=== PATIENT | male | born 1985 | race Caucasian/White ===

== ENCOUNTER → 2017-02-08 | Outpatient (CLI) | payer BC, OTHER ==
--- NOTE | 2017-02-09 14:06 | US ---
EXAM DATE: 02/08/17 PATIENT'S AGE: 31 Patient: SESAR JACKSON Facility: [place], [place] Site Site : 1985 Study: US Abdomen Renal-02/08/2017 8:49:52 PM Ordering Physician: Sarai Frye Final Report: INDICATION: Left lower quadrant pain TECHNIQUE: Ultrasound renal bilateral. Em-scale and color Doppler sonographic images were acquired of the kidneys and urinary bladder. COMPARISON: None FINDINGS: Right kidney: 10.2 x 4.6 x 5.2 cm. Normal echotexture and cortex. No masses, stones, or hydronephrosis. Left kidney: 10.3 x 5.1 x 5.9 cm. Questionable duplicated collecting system. Normal echotexture and cortex. No masses, stones, or hydronephrosis. Bladder: Normal in caliber and appearance. Color Doppler images demonstrate bilateral ureteral jets. IMPRESSION: Questionable duplicated left renal collecting system. The exam is otherwise normal. Dictated by Tamie Pickens MD @ Feb 08 2017 11:41PM (Electronic Signature) Report Signed by Proxy and Original Signed Document filed in the Medical Record. [facility]
== END ==
LOC: MW.CHIM 15:56
PROVIDERS: ATTEND Internal Medicine
DX: R10.9 Unspecified abdominal pain (principal)
CPT/HCPCS: 76775; 76775-26; 81001

== ENCOUNTER → 2017-03-23 | Outpatient (CLI) | payer BC, OTHER ==
--- NOTE | 2017-03-25 16:07 | CR ---
EXAM DATE: 03/23/17 PATIENT'S AGE: 31 Patient: SESAR JACKSON Facility: [place], [place] Site . Site : 1985 Study: XRay Shoulder Left [id number]/28/2017 9:20:52 AM Ordering Physician: Hetal Edwards Final Report: Indication: Superior glenoid labrum lesion. No additional clinical signs or symptoms provided. Technique: Left shoulder, three views Comparison: None Findings: Left shoulder alignment normal. Hill-Sachs deformity noted. No osseous abnormality involving glenoid. Visualized upper left ribs are intact. No soft tissue calcifications. Impression: Left shoulder Hill-Sachs deformity, likely sequela from prior anterior dislocation. Current left shoulder alignment is normal. No osseous abnormality involving glenoid. If concern for labral injury, consider left shoulder MRI with intra-articular contrast. Dictated by Lb Amezquita MD @ Mar 23 2017 9:31AM (Electronic Signature) Report Signed by Proxy. KEARA
== END ==
LOC: MW.CHIM 08:01
PROVIDERS: ATTEND Physician Assistant
DX: S43.439A Superior glenoid labrum lesion of unspecified shoulder, initial encounter (principal)
CPT/HCPCS: 73030-26-LT; 73030-LT

== ENCOUNTER 2017-03-30 07:19 | Day surgery (SDC) | payer BC ==
[~2017-03-30 07:19] MED LIST: Bupivacaine 0.25%/EPINEPHrine 1:200,000 10 ML SDV INJECT ONE; Lactated Ringers 1,000 ML IV SCH
[2017-03-30] MEDS ORDERED: Bupivacaine 0.25%/EPINEPHrine 1:200,000 10 ML SDV ONE (07:20)
[2017-03-30] MEDS ORDERED: Propofol 200 MG/20 ML SDV ONE (07:47)
[2017-03-30] MEDS ORDERED: fentaNYL 100 MCG/2 ML SDV ONE (07:47)
[2017-03-30] MEDS ORDERED: Lidocaine 2% 5 ML SDV ONE (07:47)
[2017-03-30] MEDS ORDERED: Midazolam 1 MG/ML 2 ML SDV ONE (07:47)
[2017-03-30] MEDS ORDERED: ceFAZolin 2 GM in Premix Bag 1 BAG IV ONE (08:00)
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
[2017-03-30] MEDS ORDERED: ePHEDrine 50 MG/ML SDV ONE (08:50)
[2017-03-30] MEDS ORDERED: fentaNYL 100 MCG/2 ML SDV IVPUSH PRN (09:07)
[2017-03-30] MEDS ORDERED: Ketorolac 30 MG/ML SDV ONE (09:13)
[2017-03-30] MEDS ORDERED: Ondansetron 4 MG/2 ML SDV ONE (09:13)
[2017-03-30 12:33] VITALS: BP 105/69
--- NOTE | 2017-04-03 09:39 | PCM.OPNOTE ---
- General Post-Op/Procedure Note Date of Surgery/Procedure: 03/30/17 Operative Procedure(s): debridement of left lower extremity wounds - skin and subcutaneous tissue 150cm2 Pre Op Diagnosis: left lower extremity compartment suyndrome with subesequent wounds Post-Op Diagnosis: Same Anesthesia Technique: General LMA, Local Primary Surgeon: Radha Marks Family Therapist: Tamie Rodriguez Complications: None Condition: Good
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
== END 2017-03-30 11:05 | disposition home or self-care (01) ==
LOC: MW.SDS 07:19
PROVIDERS: ATTEND Plastic Surgery
PROC: 0JBP0ZZ Excision of Left Lower Leg Subcutaneous Tissue and Fascia, Open Approach (ICD-10-PCS; principal; 2017-03-30)
DX: T79.A22D Traumatic compartment syndrome of left lower extremity, subsequent encounter (principal); L03.116 Cellulitis of left lower limb; E66.9 Obesity, unspecified; F17.220 Nicotine dependence, chewing tobacco, uncomplicated; V89.1XXD Person injured in unspecified nonmotor-vehicle accident, nontraffic, subsequent encounter
CPT/HCPCS: 11042; 11045; J1885; J2250; J2405; J3010; J7120; 00400; J2704

== ENCOUNTER 2017-04-04 08:34 | Day surgery (SDC) | payer BC ==
[~2017-04-04 08:34] MED LIST changes: +ceFAZolin 2 GM in Premix Bag 1 BAG IV ONE
[2017-04-04] MEDS ORDERED: Lidocaine 2% 5 ML SDV ONE ×2 (09:32→10:26)
[2017-04-04] MEDS ORDERED: Ondansetron 4 MG/2 ML SDV ONE (09:32)
[2017-04-04] MEDS ORDERED: Propofol 200 MG/20 ML SDV ONE ×2 (09:32→10:26)
[2017-04-04] MEDS ORDERED: fentaNYL 250 MCG/5 ML SDV ONE (09:33)
[2017-04-04] MEDS ORDERED: Midazolam 1 MG/ML 2 ML SDV ONE (09:33)
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
[2017-04-04] MEDS ORDERED: HYDROmorphone 2 MG/ML Syringe ONE (10:58)
[2017-04-04] MEDS ORDERED: Bupivacaine 0.25%/EPINEPHrine 1:200,000 10 ML SDV ONE (11:12)
[2017-04-04] MEDS ORDERED: HYDROmorphone 2 MG/ML Syringe IVPUSH ONE (11:54)
[2017-04-04] MEDS ORDERED: fentaNYL 100 MCG/2 ML SDV IVPUSH PRN (11:54)
[2017-04-04 13:37] VITALS: BP 127/65
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
== END 2017-04-04 13:27 | disposition home or self-care (01) ==
LOC: MW.SDS 08:34
PROVIDERS: ATTEND Plastic Surgery
DX: T79.A22D Traumatic compartment syndrome of left lower extremity, subsequent encounter (principal); S87.80XA Crushing injury of unspecified lower leg, initial encounter; L03.116 Cellulitis of left lower limb; F17.290 Nicotine dependence, other tobacco product, uncomplicated; Z98.890 Other specified postprocedural states
CPT/HCPCS: 15100; J1170; J2250; J2405; J3010; J7120; 00400; J2704

== ENCOUNTER 2017-07-18 07:07 | Day surgery (SDC) | payer BC ==
[~2017-07-18 07:07] MED LIST changes: -Bupivacaine 0.25%/EPINEPHrine 1:200,000 10 ML SDV INJECT ONE; -ceFAZolin 2 GM in Premix Bag 1 BAG IV ONE
[2017-07-18] MEDS ORDERED: Bupivacaine 0.25%/EPINEPHrine 1:200,000 10 ML SDV ONE (07:16)
[2017-07-18] MEDS ORDERED: Ondansetron 4 MG/2 ML SDV ONE (07:17)
[2017-07-18] MEDS ORDERED: Propofol 200 MG/20 ML SDV ONE (07:17)
[2017-07-18] MEDS ORDERED: fentaNYL 100 MCG/2 ML SDV ONE (07:17)
[2017-07-18] MEDS ORDERED: Lidocaine 2% 5 ML SDV ONE (07:17)
[2017-07-18] MEDS ORDERED: Midazolam 1 MG/ML 2 ML SDV ONE (07:18)
[2017-07-18] MEDS ORDERED: ceFAZolin 2 GM in Premix Bag 1 BAG IV ONE (08:00)
[2017-07-18] MEDS ORDERED: Bupivacaine 0.25%/EPINEPHrine 1:200,000 10 ML SDV INJECT ONE (08:00)
[2017-07-18] MEDS ORDERED: fentaNYL 100 MCG/2 ML SDV IVPUSH PRN (08:47)
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
[2017-07-18] MEDS ORDERED: HYDROmorphone 2 MG/ML Syringe ONE (10:05)
--- NOTE | 2017-07-18 11:27 | PCM.POSTAN ---
POST ANESTHESIA ASSESSMENT - MENTAL STATUS Mental Status: Alert, Oriented - RESPIRATORY Respiratory Status: Respiratory Rate WNL - CARDIOVASCULAR CV Status: Pulse Rate WNL, Blood Pressure Stable - GASTROINTESTINAL GI Status: No Symptoms - PAIN Pain Score: 4 - POST OP HYDRATION Hydration Status: Adequate & Stable - OBSERVATIONS Free Text/Narrative:: no anesthesia problems
[2017-07-18 12:52] VITALS: BP 130/64
--- NOTE | 2017-07-19 16:21 | PCM.OPNOTE ---
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
--- NOTE | 2017-07-20 14:52 | OR ---
SURGEON: RADHA MARKS MD DATE OF PROCEDURE: 07/18/2017 PREOP DIAGNOSIS: 1. Status post left foot crush injury with infection and necrosis of the great toe on the left due to chronic irritation. 2. Hammer toe with volar flexor tendon contracture of digits 2 through 5 on the left foot. PROCEDURE: Amputation of left great toe and release of hammer toe on digits 2, 3, 4 and 5 of the left foot. SURGEON: Radha Marks M.D. ASSISTENT: Tamie Rodriguez ANESTHESIA: General LMA with local. INDICATION: Mr. Harmon is a 32-year-old gentleman, status post crush injury to the left foot with severe contracture and decreased sensation. Unfortunately, this has caused an open wound to the left great toe that has gotten more severe since we last saw him. There is necrosis of the distal aspect of the toe and significant swelling and signs of chronic infection here. Risks and benefits of amputation were discussed with him, and this is my recommendation at this time. Risks were included, but not limited to bleeding, infection, damage to underlying or overlying structures, possible need for future intervention, and possible scarring. In addition, he has hammer toe of toes 2 through 5, and my recommendation is for release of this. There are no signs of improvement, and I do think that this is now getting to the point where it is actually causing wounds on the foot. I do recommend release. He would like to proceed. Risks were including, but not limited to the aforementioned risks. PROCEDURAL DETAILS: After informed consent was obtained and placed in the chart, the patient was brought to the operating table and placed in the supine position. After adequate general anesthetic was obtained, a local anesthesia was injected into the area, and the foot was prepped and draped in normal fashion using a Betadine closing solution. Once adequately prepped and draped, attention was then paid to the great toe amputation. A fishmouth incision was designed at the distal aspect of the metatarsal head. This incision was made after the tourniquet was insufflated to 250 mmHg without exsanguination of the foot. Once adequately marked, attention was then paid to 15 blade incisions and dissection through the skin and subcutaneous tissue with traction neuroectomies were done to allow the nerves to retract back and meticulous hemostasis was obtained, once the tourniquet was desufflated. The skin was then reapproximated and closed using deep Monocryl stitches and a 3.0 Prolene for the skin in a horizontal mattress fashion. Once this was completed, attention was then paid to digits 2, 3, 4 and 5, and a stab incision was made on the plantar aspect of the foot in order to reach the flexor tendon that was megan the toes down. This was easily released through the stab incision and then the toes were brought through range of motion to ensure complete release. Adequate release of the four digits was appreciated, with separate stab incisions for each toe. Once completed with release of the hammer toes x4, the wounds were closed using 3.0 Chromic stitches in horizontal mattress fashion to close the stab incisions on each toe x4. He tolerated this well and the wounds were dressed with Xeroform, fluffs, and a Kerlix gauze dressing and then Ricky wrap. All counts and needles were correct at the end of the case, and the patient tolerated the procedure well. FOLLOW-UP INSTRUCTIONS: He will see us in approximately ten days to address any problems, questions or concerns. RITA / ZAIDA /[id number]
== END 2017-07-18 12:25 | disposition home or self-care (01) ==
LOC: MW.SDS 07:07
PROVIDERS: ATTEND Plastic Surgery
DX: S97.112D Crushing injury of left great toe, subsequent encounter (principal); S97.122D Crushing injury of left lesser toe(s), subsequent encounter; M20.42 Other hammer toe(s) (acquired), left foot; M20.5X2 Other deformities of toe(s) (acquired), left foot; L03.032 Cellulitis of left toe; I96 Gangrene, not elsewhere classified; M75.42 Impingement syndrome of left shoulder; T79.6XXA Traumatic ischemia of muscle, initial encounter; Z79.899 Other long term (current) drug therapy; Z98.890 Other specified postprocedural states
CPT/HCPCS: 28285; 28810; J0690; J1170; J2250; J2405; J3010; J7120; 01480; 88304; J2704

== ENCOUNTER 2017-09-21 06:39 | Day surgery (SDC) | payer BC ==
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
[2017-09-21] MEDS ORDERED: Bupivacaine 0.25% 10 ML SDV ONE (07:15)
[2017-09-21] MEDS ORDERED: Lidocaine 2% 5 ML SDV ONE (07:36)
[2017-09-21] MEDS ORDERED: Ondansetron 4 MG/2 ML SDV ONE (07:36)
[2017-09-21] MEDS ORDERED: fentaNYL 100 MCG/2 ML SDV ONE (07:36)
[2017-09-21] MEDS ORDERED: Midazolam 1 MG/ML 2 ML SDV ONE (07:36)
[2017-09-21] MEDS ORDERED: Dexamethasone 4 MG/ML 5 ML MDV ONE (07:36)
[2017-09-21] MEDS ORDERED: Propofol 200 MG/20 ML SDV ONE (07:36)
[2017-09-21] MEDS ORDERED: Bupivacaine 0.25% 10 ML SDV INJECT ONE (08:00)
[2017-09-21] MEDS ORDERED: Acetaminophen/HYDROcodone 325-5 MG Tab PO PRN (08:00)
[2017-09-21] MEDS ORDERED: Lactated Ringers 1,000 ML IV SCH (08:00)
[2017-09-21] MEDS ORDERED: ceFAZolin 2 GM in Premix Bag 1 BAG IV ONE (08:00)
[2017-09-21] MEDS ORDERED: HYDROmorphone 2 MG/ML Syringe ONE (08:04)
[2017-09-21 11:23] VITALS: BP 122/77
--- NOTE | 2017-09-21 14:44 | PCM.OPNOTE ---
- General Post-Op/Procedure Note Date of Surgery/Procedure: 09/21/17 Operative Procedure(s): AMputation of left second toe Pre Op Diagnosis: left second toe nonhealing wound Post-Op Diagnosis: Same Anesthesia Technique: General LMA, Local Primary Surgeon: Radha Marks Beauty Director: Tamie Rodriguez Complications: None Condition: Good Free Text/Narrative:: Intake & Output 09/20/17 09/21/17 09/21/17 23:59 07:59 15:59 Intake Total 2750 Balance 2750 [id number]
--- NOTE | 2017-09-21 15:21 | OR ---
SURGEON: CHAPINCITO TAM MD DATE OF PROCEDURE: 09/21/2017 PREOPERATIVE DIAGNOSIS: Left second toe nonhealing wound. POSTOPERATIVE DIAGNOSIS: Left second toe nonhealing wound. PROCEDURE: Amputation of left second toe. LABORATORY EQUIPMENT INSTALLER: NICK Cunningham. ANESTHESIA: General LMA with local. INDICATIONS: Mr. Harmon is a 32-year-old gentleman status post crush injury to the left lower extremity. He is having difficulties with wound healing in the great toe, was amputated a while back for nonhealing wound and likely osteomyelitis. We discussed options, then risks and benefits of amputation of the second toe were discussed because it is significantly large and nonhealing volar wound. Risks and benefits of amputation were agreed to and he would like to proceed. Risks were including, but not limited to, bleeding, infection, damage to underlying or overlying structures, possible need for future interventions, and possible scarring. PROCEDURE IN DETAIL: After informed consent was obtained and placed on the chart, the patient was brought to the operating theater and laid in a supine position. After adequate general LMA with local anesthesia was obtained, the area was prepped and draped and time-out was completed to confirm side and site. Attention was then paid to elevation of the leg and insufflation of the tourniquet to 250 mmHg. Attention was then paid to the fishmouth incision designed over the base of the second toe and an incision was made through the skin and subcutaneous tissues until dissection down onto the metatarsophalangeal joint. This was amputated at the joint and the area was copiously irrigated with normal saline. The cartilaginous cap on the metacarpal head was rongeured to prevent slip on the plantar surface. Once adequately rongeured, the area was copiously irrigated again. Traction neurectomies were performed of the digital neurovascular bundles and then hemostasis was obtained. The tourniquet was desufflated. The skin was closed using deep Monocryl stitches and a 3-0 Prolene in a horizontal mattress fashion for the skin. The patient tolerated this well and the wounds were dressed with Xeroform fluffs and a Kerlix gauze dressing and 2-inch and 4-inch Ricky wrap. FOLLOWUP INSTRUCTIONS: The patient will see us in clinic in 10 to 14 days or sooner if any problems, questions, or concerns. RITA / ZAIDA /[id number]
== END 2017-09-21 09:57 | disposition home or self-care (01) ==
LOC: MW.SDS 06:39
PROVIDERS: ATTEND Plastic Surgery
DX: S91.105A Unspecified open wound of left lesser toe(s) without damage to nail, initial encounter (principal); F32.9 Major depressive disorder, single episode, unspecified; Z89.412 Acquired absence of left great toe; Z98.818 Other dental procedure status; Z79.899 Other long term (current) drug therapy
CPT/HCPCS: 28820; J1100; J1170; J2250; J2405; J3010; 01480; 88305; 88311; J2704

== ENCOUNTER 2018-12-21 23:26 | Emergency (ER) | payer BC ==
[2018-12-21] MEDS ORDERED: Diphtheria,Pertussis(Acell),Tetanus Vaccine 0.5 ML Syringe IM ONE (23:38)
[2018-12-21] MEDS ORDERED: Lidocaine 1% 10 ML MDV INJECT ONE (23:38)
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
[2018-12-22] MEDS ORDERED: Bacitracin Oint 1 GM U/D Packet ONE (00:29)
== END 2018-12-22 00:41 | disposition home or self-care (01) ==
LOC: MW.ED 23:26
DX: S61.215A Laceration without foreign body of left ring finger without damage to nail, initial encounter (principal); E66.9 Obesity, unspecified; W26.9XXA Contact with unspecified sharp object(s), initial encounter
CPT/HCPCS: 12002; 99282

== ENCOUNTER 2019-01-03 07:35 | Day surgery (SDC) | payer BC ==
[~2019-01-03 07:35] MED LIST changes: +Bupivacaine 0.25%/EPINEPHrine 1:200,000 10 ML SDV ONE; -Lactated Ringers 1,000 ML IV SCH
[2019-01-03] MEDS ORDERED: Lactated Ringers 1,000 ML IV SCH (08:00)
[2019-01-03] MEDS ORDERED: ceFAZolin 2 GM in Premix Bag 1 BAG IV ONE (08:00)
[2019-01-03] MEDS ORDERED: Bupivacaine 0.25%/EPINEPHrine 1:200,000 10 ML SDV INJECT ONE (08:00)
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
[2019-01-03] MEDS ORDERED: Midazolam 1 MG/ML 2 ML SDV ONE (10:12)
[2019-01-03] MEDS ORDERED: Propofol 200 MG/20 ML SDV ONE (10:12)
[2019-01-03] MEDS ORDERED: fentaNYL 250 MCG/5 ML SDV ONE (10:12)
[2019-01-03] MEDS ORDERED: Metoclopramide 10 MG/2 ML SDV ONE (11:08)
[2019-01-03] MEDS ORDERED: Dexamethasone 4 MG/ML 5 ML MDV ONE (11:08)
[2019-01-03] MEDS ORDERED: Ketorolac 30 MG/ML SDV ONE (11:08)
[2019-01-03] MEDS ORDERED: Ondansetron 4 MG/2 ML SDV ONE (11:08)
[2019-01-03] MEDS ORDERED: diphenhydrAMINE 50 MG/ML SDV ONE (11:35)
[2019-01-03] MEDS ORDERED: Naloxone 0.4 MG/ML Syringe IVPUSH PRN (11:52)
[2019-01-03] MEDS ORDERED: Albuterol 0.083% 2.5 MG/3 ML Neb Soln NEB PRN (11:52)
[2019-01-03] MEDS ORDERED: EPINEPHrine 1 MG/1 ML Amp IVPUSH PRN (11:52)
[2019-01-03] MEDS ORDERED: Atropine 1 MG/ML SDV IVPUSH PRN ×2 (11:52)
[2019-01-03] MEDS ORDERED: 50% Dextrose in Water 50 ML Syringe IVPUSH PRN (11:52)
[2019-01-03] MEDS ORDERED: fentaNYL 100 MCG/2 ML SDV ONE (11:55)
[2019-01-03] MEDS: fentaNYL 100 MCG/2 ML SDV IVPUSH PRN ×2 (11:57→12:04)
[2019-01-03] MEDS ORDERED: HYDROmorphone 2 MG/ML SDV IVPUSH ONE (12:00)
[2019-01-03] MEDS: HYDROmorphone 2 MG/ML Syringe ONE ×2 (12:10→12:16)
[2019-01-03] MEDS ORDERED: Acetaminophen/HYDROcodone 325-5 MG Tab PO ONE (12:41)
[2019-01-03 14:22] VITALS: BP 122/67
--- NOTE | 2019-01-07 08:19 | PCM.OPNOTE ---
- General Post-Op/Procedure Note Date of Surgery/Procedure: 01/03/19 Operative Procedure(s): amputation of remaining 3 toes on the left foot Pre Op Diagnosis: painful left remaining toes s/p traumativ leg injury Post-Op Diagnosis: Same Anesthesia Technique: General LMA, Local Primary Surgeon: Radha Marks Supervisor Clam Bed: Tamie Rodriguez Complications: None Condition: Good Free Text/Narrative:: [id number]
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
== END 2019-01-03 13:10 | disposition home or self-care (01) ==
LOC: MW.SDS 07:35
PROVIDERS: ATTEND Plastic Surgery
DX: T79.A22A Traumatic compartment syndrome of left lower extremity, initial encounter (principal); F17.220 Nicotine dependence, chewing tobacco, uncomplicated; E66.9 Obesity, unspecified; Z68.31 Body mass index [BMI] 31.0-31.9, adult; F41.9 Anxiety disorder, unspecified; F32.9 Major depressive disorder, single episode, unspecified; Z79.890 Hormone replacement therapy; Z79.899 Other long term (current) drug therapy
CPT/HCPCS: 28820; A9270; J1100; J1170; J1885; J2250; J2405; J2704; J2765; J3010; J3490; J7120; 01480